=== PATIENT | female | born 1945 | race Caucasian/White ===

== ENCOUNTER 2017-10-22 08:54 | Day surgery (SDC) | payer MEDICARE, BC, MEDICAID ==
[2017-10-22] MEDS ORDERED: LIDOCAINE 2% (SDV) 5 ML INJ (10:15)
[2017-10-22] MEDS ORDERED: PROPOFOL 40 ML (10:15)
== END 2017-10-22 16:28 | disposition home or self-care (01) ==
LOC: GIL 08:54
DX: K29.70 Gastritis, unspecified, without bleeding (principal); K64.8 Other hemorrhoids; E78.5 Hyperlipidemia, unspecified; J42 Unspecified chronic bronchitis; F99 Mental disorder, not otherwise specified; M19.90 Unspecified osteoarthritis, unspecified site; Z79.02 Long term (current) use of antithrombotics/antiplatelets; J44.9 Chronic obstructive pulmonary disease, unspecified; Z88.1 Allergy status to other antibiotic agents; Z88.0 Allergy status to penicillin
CPT/HCPCS: 43239; 87081

== ENCOUNTER 2017-11-13 10:59 | Emergency (ER) | payer MEDICARE, BC ==
[2017-11-13] MEDS: SOD CHLORIDE 0.9% 1,000 ML IV (13:01)
[2017-11-13] MEDS: KETOROLAC 15 MG INJ IV (13:01)
[2017-11-13 14:05] LABS: URINE PH (Dip) POC 6.5 (5.0-8.5)
[2017-11-13 14:05] LABS: URINE BLOOD (Dip) POC Trace-intact (NEGATIVE); URINE GLUCOSE (Dip) POC Negative (NEGATIVE); URINE KETONES (Dip) POC Negative (NEGATIVE); URINE LEUKOCYTE EST (Dip) POC 2+ (NEGATIVE); URINE NITRITE (Dip) POC Negative (NEGATIVE); URINE TOTAL PROTEIN POC Trace (NEGATIVE)
[2017-11-13 14:32] LABS: ADD UMIC YES; UR ASCORBIC ACID NEGATIVE (NEGATIVE); UR BILIRUBIN (Dip) NEGATIVE (NEGATIVE); UR BLOOD (Dip) 1+ mg/dL (NEGATIVE); UR CLARITY CLEAR (CLEAR); UR COLOR YELLOW (YELLOW); UR GLUCOSE (Dip) NEGATIVE (NEGATIVE); UR KETONES (Dip) NEGATIVE (NEGATIVE); UR LEUKOCYTE ESTERASE (Dip) 2+ Leu/ul (NEGATIVE); UR NITRITE (Dip) NEGATIVE (NEGATIVE); UR RBC 2 /HPF (0-5); UR SPECIFIC GRAVITY (Dip) 1.013 (1.003-1.030); UR TOTAL PROTEIN (Dip) NEGATIVE (NEGATIVE); UR UROBILINOGEN (Dip) NEGATIVE (NEGATIVE); UR WBC 8 /HPF (0-5)
[2017-11-13] MEDS: CEPHALEXIN 500 MG CAP PO (15:07)
== END 2017-11-13 15:24 | disposition home or self-care (01) ==
LOC: E/R 10:59
DX: S33.5XXA Sprain of ligaments of lumbar spine, initial encounter (principal); G89.4 Chronic pain syndrome; E86.0 Dehydration; N30.00 Acute cystitis without hematuria; J45.909 Unspecified asthma, uncomplicated; X58.XXXA Exposure to other specified factors, initial encounter; Y92.9 Unspecified place or not applicable
CPT/HCPCS: 36415; 81001; 81003; 96374; 99284-25